=== PATIENT | male | born 1960 | race Caucasian/White ===

== ENCOUNTER 2021-04-30 22:41 | Emergency (ER) | payer BC ==
[2021-04-30 22:48] VITALS: TEMP 97.8
--- NOTE | 2021-04-30 23:46 | ED ---
General Adult HPI - General Chief complaint: Recheck/Abnormal Lab/Rx Stated complaint: High BP Time Seen by Provider: 04/30/21 22:51 Source: patient Mode of arrival: ambulatory Limitations: no limitations - History of Present Illness Initial comments: This patient is a 60-year-old man who presents to have evaluation for hypertension. The patient states that he was feeling a little off, including hearing ringing in his ears tonight. He checked his blood pressure and it was elevated. Patient checked again and the blood pressure was in the neighborhood of 240/160. The patient denies chest pain or dyspnea. No strokelike symptoms. No abdominal or back pain. -: minutes(s) Severity scale (1-10): 0 Improves with: none Worsens with: none Associated Symptoms: other (Tinnitus) Treatments Prior to Arrival: none - Related Data Home Medications Medication Instructions Recorded Confirmed Aspirin 325 mg PO DAILY 08/03/15 08/04/15 Pravastatin Sodium [Pravachol] 40 mg PO HS 08/03/15 08/04/15 Allergies Allergy/AdvReac Type Severity Reaction Status Date / Time Penicillins AdvReac Nausea Verified 04/30/21 22:48 Review of Systems ROS Statement: Those systems with pertinent positive or pertinent negative responses have been documented in the HPI. ROS Other: All systems not noted in ROS Statement are negative. Constitutional: Denies: fever, weakness Eyes: Denies: vision change Respiratory: Denies: cough, dyspnea Cardiovascular: Denies: chest pain, palpitations, orthopnea, edema, syncope Gastrointestinal: Denies: abdominal pain, vomiting Musculoskeletal: Denies: back pain Neurological: Denies: headache, weakness Past Medical History Past Medical History: Hyperlipidemia History of Any Multi-Drug Resistant Organisms: None Reported Past Surgical History: Appendectomy, Hernia Repair Past Anesthesia/Blood Transfusion Reactions: No Reported Reaction Past Psychological History: No Psychological Hx Reported Smoking Status: Vaper Past Alcohol Use History: Rare Past Drug Use History: None Reported - Past Family History Mother Family Medical History: No Reported History General Exam Limitations: no limitations General appearance: alert, in no apparent distress Head exam: Present: atraumatic, normocephalic Eye exam: Present: normal appearance. Absent: scleral icterus, conjunctival injection Neck exam: Present: normal inspection Respiratory exam: Present: normal lung sounds bilaterally. Absent: respiratory distress, wheezes, rales, rhonchi, stridor Cardiovascular Exam: Present: regular rate, normal rhythm, normal heart sounds. Absent: systolic murmur, diastolic murmur, rubs, gallop GI/Abdominal exam: Present: soft. Absent: distended, tenderness, guarding, rebound, rigid, mass, pulsatile mass Extremities exam: Present: normal inspection, normal capillary refill. Absent: pedal edema, calf tenderness Back exam: Present: normal inspection. Absent: CVA tenderness (R), CVA tenderness (L) Neurological exam: Present: alert Skin exam: Present: warm, dry, intact, normal color. Absent: rash Course Vital Signs 04/30/21 22:43 Temperature 97.8 F Pulse Rate 81 Respiratory 18 Rate Blood Pressure 156/91 O2 Sat by Pulse 97 Oximetry Disposition Clinical Impression: Hypertension Disposition: HOME SELF-CARE Condition: Good Instructions (If sedation given, give patient instructions): Hypertension (ED) Is patient prescribed a controlled substance at d/c from ED?: No Referrals: Danie Kim MD [Primary Care Provider] - 1-2 days
[2021-05-01 00:32] VITALS: BP 155/90; RESP 20
[2021-05-01 00:33] VITALS: PULSE 72
== END 2021-05-01 00:23 | disposition home or self-care (01) ==
LOC: EC 22:41
DX: I10 Essential (primary) hypertension (principal); E78.5 Hyperlipidemia, unspecified; Z79.899 Other long term (current) drug therapy; Z88.0 Allergy status to penicillin
CPT/HCPCS: 99283

== ENCOUNTER → 2021-08-08 | Outpatient (CLI) | payer BC ==
--- NOTE | 2021-08-08 09:27 | CTL ---
EXAMINATION TYPE: CT Low Dose Lung DATE OF EXAM ORDERED: 08/08/2021 HISTORY: Long-term tobacco use. Lung cancer screening CT DLP: 131.[address] CTDI: 3.5 mGy Automated exposure control for dose reduction was used. SCREENING VISIT: Baseline COMPARISON: None TECHNIQUE: Low dose computed tomography scan was performed through the chest at 1 mm thick sections a nd reconstructed images in multiple planes at 1 mm and [address] DIAGNOSTIC QUALITY: Satisfactory FINDINGS: LUNG NODULES: Present, detailed below: There is 4 x 3 mm peripheral anterior right upper lobe nodule axial image 64. There is 9.4 x 7.3 mm inferior left upper lobe nodule anteriorly on axial image 122. LUNGS: COPD: Severity: Mild Fibrosis: Severity: None Lymph nodes: None Other findings: None RIGHT PLEURAL SPACE: Effusion: None Calcification: None Thickening: None Pneumothorax: None LEFT PLEURAL SPACE: Effusion: None Calcification: None Thickening: None Pneumothorax: None HEART: Heart Size: Normal Coronary Calcification: None Pericardial Effusion: None OTHER FINDINGS: Upper abdomen: Liver is heterogeneously hypodense consistent with diffuse fatty infiltration Bony thorax: Mild to moderate multilevel spurring Supraclavicular region: None Other: Small amount of Bilateral flame-shaped subareolar gynecomastia IMPRESSION: Mild emphysematous change with tiny right-sided nodule. Slightly more suspicious just ove r 9 x [address] lung nodule. CT LUNG RAD AND CT CHEST RECOMMENDATION: Lung-Rad 4A Suspicious: Follow-up 3 month LDCT or PET/CT may be used when there is a > 8 mm solid component. Recommendation: Short-term follow-up CT due to size is likely preferred in next 1to 3 months time and then if interval growth is seen PET/CT would be advised S Modifier (other clinically significant findings): S
== END | disposition home or self-care (01) ==
LOC: RADCTMAIN 06:46
PROVIDERS: ATTEND Family Medicine
DX: Z12.2 Encounter for screening for malignant neoplasm of respiratory organs (principal); R91.1 Solitary pulmonary nodule; Z87.891 Personal history of nicotine dependence
CPT/HCPCS: 71271

== ENCOUNTER 2021-08-25 08:30 | Day surgery (SDC) | payer BC ==
[2021-08-23 09:08] VITALS: BMI 31.5
[~2021-08-25 08:30] MED LIST: LACTATED RINGERS 1,000 ML IV SCH
[2021-08-25 08:56] VITALS: TEMP 97.2
[2021-08-25] MEDS ORDERED: LIDOCAINE 1% (10MG/ML) FOR IV START INTRADERMA ONE (09:01)
[2021-08-25] MEDS ORDERED: PROPOFOL 10 MG/ML 20 ML VIAL IV ONE (09:14)
--- NOTE | 2021-08-25 09:38 | P.PCN ---
Date of Procedure: 08/25/21 Procedure(s) Performed: BRIEF HISTORY: Patient is a 60-year-old pleasant white male scheduled for an elective colonoscopy as a part of evaluation of prior history of colon polyps. Last colonoscopy was 5 years ago. PROCEDURE PERFORMED: Colonoscopy with snare polypectomy. PREOPERATIVE DIAGNOSIS: history of colonpolyps. IV sedation per Anesthesia. PROCEDURE: After informed consent was obtained, the patient, was brought into the endoscopy unit. IV sedation was administered by Anesthesia under continuous monitoring. Digital rectal examination was normal. Initially the Olympus CF-160 flexible video colonoscope was then inserted in the rectum, gradually advanced into the cecum without any difficulty. Careful examination was performed as the scope was gradually being withdrawn. Ileocecal valve and the appendiceal orifice were visualized and appeared normal. Prep was excellent. Mucosa of the cecum, had a 3 mm and 5 limited polyp removed by snare polypectomy. The ascending colon, transverse colon, descending colon, sigmoid colon, and rectum appeared normal. In the sigmoid: There was a 3 mm polyp that was removed by snare polypectomy. Scattered sigmoid diverticulosis. Retroflexion was performed in the rectum and no lesions were seen. The patient tolerated the procedure well. IMPRESSION: 3 mm and 5 lmm cecal polyp status post polypectomy 3 mm sigmoid colon polyp status post polypectomy Scattered sigmoid diverticulosis RECOMMENDATIONS: Findings of this examination were discussed with the patient [as well as a family. He was advised to follow with the biopsy results. If the biopsy reveals adenoma he can have a repeat colonoscopy in 5 years.
[2021-08-25 10:12] VITALS: PULSE 56; RESP 18
[2021-08-25 10:14] VITALS: BP 125/78
== END 2021-08-25 10:30 | disposition home or self-care (01) ==
LOC: ORWHC2ENDO 08:30
PROVIDERS: ATTEND Internal Medicine Gastroenterology
DX: Z79.899 Other long term (current) drug therapy (principal); Z12.11 Encounter for screening for malignant neoplasm of colon; Z86.010 Personal history of colon polyps; D12.0 Benign neoplasm of cecum; K63.5 Polyp of colon; K57.30 Diverticulosis of large intestine without perforation or abscess without bleeding; E78.5 Hyperlipidemia, unspecified; Z90.49 Acquired absence of other specified parts of digestive tract; Z98.890 Other specified postprocedural states; Z88.0 Allergy status to penicillin
CPT/HCPCS: 88305; 45385; J2704

== ENCOUNTER → 2021-09-01 | Outpatient (CLI) | payer BC ==
--- NOTE | 2021-09-01 12:02 | PE ---
EXAMINATION TYPE: PET CT fusion skull to thigh DATE OF EXAM: 09/01/2021 COMPARISON: Low-dose lung screening CT August 08, 2021 HISTORY: Solitary pulmonary nodule, abnormal CT. TECHNIQUE: Following the intravenous administration of 11.6 mCi of F-18 FDG, whole body images are p erformed from the skull base to the midthigh. Images are reviewed on the computer in the coronal, ax ial, and sagittal planes. Reconstructed rotating images are created on independent workstation and r eviewed on the computer. A localization and attenuation correction CT is performed in conjunction w ith the PET scan. Blood glucose level equals 113. SCAN: Initial Scan FINDINGS: SKULL BASE AND NECK: No areas of abnormal hypermetabolic uptake. CHEST, MEDIASTINUM, AND HILAR REGION: Mild underlying emphysematous changes redemonstrated. Persisten t anterior left mid lung 8 x 7 mm nodule series 3 image 97 is ametabolic. No areas of abnormal hyperm etabolic uptake. ABDOMEN AND PELVIS: No areas of abnormal hypermetabolic uptake. No adrenal mass is noted. OSSEOUS STRUCTURES: No areas of abnormal hypermetabolic uptake. OTHER CT: Liver is heterogeneously slightly hypodense relative to the spleen consistent with mild dif fuse fatty infiltration. Few diverticula in the sigmoid colon are present. Mildly enlarged prostate c onsistent with BPH. IMPRESSION: No suspicious hypermetabolic uptake in the 8 mm left midlung nodule. No abnormal hypermet abolic uptake identified anywhere. Recommendation: Precautionary CT and/or PET CT follow-up in 6 months time to reassess.
== END | disposition home or self-care (01) ==
LOC: RADPETMAIN 07:31
PROVIDERS: ATTEND Family Medicine
DX: R91.1 Solitary pulmonary nodule (principal)
CPT/HCPCS: 78815; A9552